=== PATIENT | female | born 1950 | race Caucasian/White ===

== ENCOUNTER 2016-09-17 21:33 | Emergency (ER) | payer BC, OTHER ==
[~2016-09-17] VITALS: Ht 165.1 cm; Wt 56.5 kg
[~2016-09-17 21:33] MED LIST: ASPI81TA28 PO; SIMV40TA2 PO
[2016-09-17 21:38] VITALS: TEMP 37; Ht 165.1 cm; Wt 56.5 kg
[2016-09-17] MEDS ORDERED: DiphenhydrAMINE HCL 50 MG/ML VIAL IV STA (21:56)
[2016-09-17] MEDS ORDERED: METHYLPREDNISOLONE 125 MG VIAL IV STA (21:56)
--- NOTE | 2016-09-17 22:06 | EMERGENCY ROOM VISIT NOTE ---
History Report prepared by Jose Enrique: Bertha Velazquez Under the Supervision of: Dr. Víctor Castano M.D. First contact with patient: 21:48 Chief Complaint: ALLERGIC REACTION Stated Complaint: HIVES History of Present Illness The patient is a 65 year old female who presents to the Emergency Room with complaints of an episode of an allergic reaction beginning yesterday. The patient's friend states that the patient started cough syrup yesterday and she has had hives since then. She reports that the patient has the start of dementia. The patient complains of hives and itchiness. She denies any respiratory problems, nausea, vomiting, and chills. The friend states that the patient had Benadryl 2 hours ago and also had some yesterday without relief of her symptoms. She notes that the patient is a heavy smoker. Source of History: patient, friend Onset: yesterday Position: other (global) Quality: other (itchiness) Timing: other (episode) Associated Symptoms: No chills, No nausea, No vomiting Note: The patient complains of hives and itchiness. She denies any respiratory problems. Review of Systems See HPI for pertinent positives & negatives. A total of 10 systems reviewed and were otherwise negative. Past Medical & Surgical Medical Problems: (1) HYPERLIPIDEMIA NEC/NOS (2) HYPERTENSION NOS (3) Hysterectomy Old medical records were reviewed. Nurse's notes were reviewed and I agree with. She is allergic to sulfa but no other antibiotics that she knows of. She does have allergies to some dyes Family History No pertinent family history stated. Social History Smoking Status: Current Every Day Smoker Marital Status: Housing Status: lives with family Current/Historical Medications Scheduled Amoxicillin & Pot Clavulanate (Augmentin 875-125 mg), 875 MG PO BID Aspirin (Aspirin Ec), 81 MG PO DAILY Cholecalciferol (Vitamin D3), 5,000 INTER.UNIT PO DAILY Donepezil Hydrochloride (Aricept), 10 MG PO HS Estradiol (Estradiol), 0.5 MG PO DAILY Fluoxetine (Prozac), 20 MG PO DAILY Krill Oil (Krill Oil [place]-3), 1 CAP PO DAILY Metoprolol Tartrate (Lopressor) (Lopressor), 25 MG PO BID Multiple Vitamins W/ Minerals (Centrum Silver Adult 50+), 1 TAB PO DAILY Simvastatin (Zocor), 40 MG PO QPM Allergies Coded Allergies: Red Dye (Verified Allergy, Intermediate, Hives, 09/17/16) Sulfa Drugs (Verified Allergy, Unknown, RASH/ITCHING, 03/18/14) Unclassified Drugs (Verified Allergy, Unknown, Black Rubber Mix, 01/14/13) Uncoded Allergies: BLACK DYE (Allergy, Intermediate, Hives, 09/17/16) Physical Exam Vital Signs Date Time Temp Pulse Resp B/P Pulse Ox O2 Delivery O2 Flow Rate FiO2 09/18/16 00:10 61 18 127/64 97 09/17/16 21:46 94 Room Air 09/17/16 21:38 37.0 67 18 157/72 94 Room Air Physical Exam General: Non-ill appearing older female in no acute distress. Speaking and swallowing without difficulty, no drooling. HEENT: Normal cephalic atraumatic. Pupils are equal round and reactive to light. Extraocular movements are intact. Oropharynx is pink with moist mucous membranes. No swelling of the mouth lips or tongue. Neck: Supple with a midline trachea. No meningeal signs or stiffness, no JVD or bruits. No Stridor. Chest: Clear to auscultation bilaterally. No wheezes or rhonchi. No increased work of breathing. Heart: regular rate and rhythm. Abdomen: Soft nontender, nondistended without rebound guarding or rigidity. Extremities: No cyanosis clubbing or edema. No calf tenderness or assymetry Spine/Back. Non tender to palpation. No CVA tenderness Skin: Red raised lesions consistent with hives on arms and torso. Neurologic exam: Cranial nerves two through 12 are intact. Motor and sensation are intact and symmetrical throughout. Medical Decision & Procedures ER Provider Diagnostic Interpretation: X-ray results as stated below per interpretation by me and the radiologist: CHEST ONE VIEW PORTABLE FINDINGS: The patient is hyperinflated. The heart is the upper limits of normal in size. Since the prior study, the patient developed left basal airspace opacities. These are suspicious for a pneumonia. Films subsequent to treatment are recommended in follow-up. There is equivocal trace left pleural effusion.[ IMPRESSION: Interval development of left basal airspace opacities suspicious for pneumonia. Films subsequent to treatment are recommended in follow-up Electronically signed by: Flaco Maradiaga M.D. 09/17/2016 10:09 PM Dictated Date/Time: 09/17/2016 10:08 PM Laboratory Results 09/17/16 22:17 Red Blood Count 4.41, Mean Corpuscular Volume 88.9, Mean Corpuscular Hemoglobin 31.5, Mean Corpuscular Hemoglobin Concent 35.5, Mean Platelet Volume 10.1, Neutrophils (%) (Auto) 75.3, Lymphocytes (%) (Auto) 14.7, Monocytes (%) (Auto) 7.9, Eosinophils (%) (Auto) 0.9, Basophils (%) (Auto) 0.1, Neutrophils # (Auto) 9.20, Lymphocytes # (Auto) 1.79, Monocytes # (Auto) 0.96, Eosinophils # (Auto) 0.11, Basophils # (Auto) 0.01 09/17/16 22:17 Test 09/17/16 22:17 White Blood Count 12.21 K/uL (4.8-10.8) Red Blood Count 4.41 M/uL (4.2-5.4) Hemoglobin 13.9 g/dL (12.0-16.0) Hematocrit 39.2 % (37-47) Mean Corpuscular Volume 88.9 fL (80-100) Mean Corpuscular Hemoglobin 31.5 pg (25-34) Mean Corpuscular Hemoglobin Concent 35.5 g/dl (32-36) Platelet Count 355 K/uL (130-400) Mean Platelet Volume 10.1 fL (7.4-10.4) Neutrophils (%) (Auto) 75.3 % Lymphocytes (%) (Auto) 14.7 % Monocytes (%) (Auto) 7.9 % Eosinophils (%) (Auto) 0.9 % Basophils (%) (Auto) 0.1 % Neutrophils # (Auto) 9.20 K/uL (1.4-6.5) Lymphocytes # (Auto) 1.79 K/uL (1.2-3.4) Monocytes # (Auto) 0.96 K/uL (0.11-0.59) Eosinophils # (Auto) 0.11 K/uL (0-0.5) Basophils # (Auto) 0.01 K/uL (0-0.2) RDW Standard Deviation 42.0 fL (36.4-46.3) RDW Coefficient of Variation 13.0 % (11.5-14.5) Immature Granulocyte % (Auto) 1.1 % Immature Granulocyte # (Auto) 0.14 K/uL (0.00-0.02) Anion Gap 12.0 mmol/L (3-11) Est Creatinine Clear Calc Drug Dose 79.4 ml/min Estimated GFR () 109.1 Estimated GFR (Non- 94.1 BUN/Creatinine Ratio 19.1 (10-20) Calcium Level 8.6 mg/dl (8.5-10.1) Total Bilirubin 0.6 mg/dl (0.2-1) Direct Bilirubin mg/dl (0-0.2) Aspartate Amino Transf (AST/SGOT) U/L (15-37) Alanine Aminotransferase (ALT/SGPT) 28 U/L (12-78) Alkaline Phosphatase 83 U/L (45-117) Total Protein 7.2 gm/dl (6.4-8.2) Albumin 2.9 gm/dl (3.4-5.0) Lipase 105 U/L (73-393) Chemistry Specimen Hemolysis Laboratory studies as stated above per my review. Medications Administered Medications (Trade) Dose Ordered Sig/Marycruz Route Start Time Stop Time Status Last Admin Dose Admin Methylprednisolone Sodium Succinate (Solu-Medrol IV) 125 mg NOW STAT IV 09/17/16 21:56 09/17/16 21:58 DC 09/17/16 22:21 125 MG Diphenhydramine HCl (Benadryl Inj) 25 mg NOW STAT IV 09/17/16 21:56 09/17/16 21:58 DC 09/17/16 22:21 25 MG ED Course 2147: Past medical records reviewed. The patient was evaluated in room B10, and a complete history and physical examination were performed. 6: Benadryl Inj 25mg IV, Solu-Medrol IV 125mg IV. 2259: I reevaluated the patient she is resting comfortably. 2324: I spoke to the patient's son. He does not thing that she has any allergy to penicillin and said that she has had it before without any reaction. 2345: Augmentin 875mg homepack. 2347: Upon reevaluation, the patient is hemodynamically stable. I discussed the results and treatment plan with the patient. She verbalized agreement of the treatment plan. The patient was discharged home. Medical Decision Differential diagnoses include hives, allergic reaction, pneumonia, electrolyte or metabolic imbalance. This patient comes in as described above. She has diffuse hives that have been going on for over 24 hours. She looks well. She has no evidence of airway compromise or swelling and she is speaking and swallowing without difficulty and has no GI symptoms and nothing to suggest anaphylaxis. She apparently did take Benadryl earlier today . IV access was established blood work was obtained. She was given Solu-Medrol 125 Millgrams IV and 25 mg of Benadryl IV, she looks well. The only new thing seems to the cough medicine which I told her to stop it as she could be allergic to it. As she was having a cough, I did do a chest x-ray and the radiologist questions a pneumonia. In light of this, I will put her on Augmentin. She checked with her who thinks she' s had this before and she has no known penicillin allergy according to her or sister. She has no significant electrode or metabolic abdomen. White count is mildly elevated at 12. She's not hypoxemic. She should continue to use Benadryl as needed , follow-up with her regular doctor 1-2 days recheck. return if worsening symptoms, shortness of breath, fever chills, any new problems concerns. She was happy with the plan and discharged home. Impression Primary Impression: Allergic reaction Additional Impression: Pneumonia Scribe Attestation The scribe's documentation has been prepared under my direction and personally reviewed by me in its entirety. I confirm that the note above accurately reflects all work, treatment, procedures, and medical decision making performed by me. Departure Information Dispostion Home / Self-Care Prescriptions Amoxicillin & Pot Clavulanate (Augmentin 875-125 mg) 1 Tab Tab 875 MG PO BID for 10 Days, #20 TAB Prov: Víctor Castano M.D. 09/17/16 Referrals Ezequiel Chinchilla M.D. (PCP) Forms HOME CARE DOCUMENTATION FORM, IMPORTANT VISIT INFORMATION Patient Instructions My [facility] Additional Instructions Rest. Drink plenty of fluids. Use Augmentin 875 mg twice a day for 10 daysantibiotic Use Benadryl 25MG every 8 hours if needed for hives. Benadryl may make you drowsy and be careful getting up and down. Do not take before driving or drinking Return if: Worsening of symptoms, not tolerating fluids, shortness of breath, facial swelling, vomiting, any new problems or concerns. Follow-up with your doctor this week for recheck Problem Qualifiers
--- NOTE | 2016-09-17 22:10 | DIAGNOSTIC IMAGING REPORT ---
CHEST ONE VIEW PORTABLE CLINICAL HISTORY: Atypical chest pain COMPARISON STUDY: 08/06/2013 FINDINGS: The patient is hyperinflated. The heart is the upper limits of normal in size. Since the prior study, the patient developed left basal airspace opacities. These are suspicious for a pneumonia. Films subsequent to treatment are recommended in follow-up. There is equivocal trace left pleural effusion.[ IMPRESSION: Interval development of left basal airspace opacities suspicious for pneumonia. Films subsequent to treatment are recommended in follow-up Electronically signed by: Flaco Maradiaga M.D. 09/17/2016 10:09 PM Dictated Date/Time: 09/17/2016 10:08 PM
[2016-09-17] MEDS ORDERED: CHOLCAP5 PO (22:24)
[2016-09-17] MEDS ORDERED: KRIL1CAP7 PO (22:24)
[2016-09-17] MEDS ORDERED: FLUO20CA35 PO (22:24)
[2016-09-17] MEDS ORDERED: METO25TA56 PO (22:24)
[2016-09-17] MEDS ORDERED: ESTR0.5T3 PO (22:24)
[2016-09-17] MEDS ORDERED: MULT-845 PO (22:24)
[2016-09-17] MEDS ORDERED: DONE10TA12 PO (22:24)
[2016-09-17 22:31] LABS: BASO % 0.1 %; BASO ABS # 0.01 K/uL (0-0.2); COMPLETE YES; EOS % 0.9 %; HEMATOCRIT 39.2 % (37-47); IG% 1.1 %; LYMPH % 14.7 %; LYMPH ABS # 1.79 K/uL (1.2-3.4); MEAN CELL VOLUME 88.9 fL (80-100); MEAN CORPUSCULAR HEMOGLOBIN 31.5 pg (25-34); MEAN CORPUSCULAR HGB CONC 35.5 g/dl (32-36); MEAN PLATELET VOLUME 10.1 fL (7.4-10.4); MONO % 7.9 %; NEUT % 75.3 %; PLATELET COUNT 355 K/uL (130-400); RED BLOOD COUNT 4.41 M/uL (4.2-5.4); WHITE BLOOD COUNT 12.21 K/uL (4.8-10.8)
[2016-09-17 23:22] LABS: ALKALINE PHOSPHATASE 83 U/L (45-117); ALT/SGPT 28 U/L (12-78); BLOOD UREA NITROGEN 12 mg/dl (7-18); BUN/CREATININE RATIO 19.1 (10-20); CALCIUM 8.6 mg/dl (8.5-10.1); CARBON DIOXIDE 28 mmol/L (21-32); CHLORIDE 93 mmol/L (98-107); CREATININE 0.63 mg/dl (0.60-1.20); GLUCOSE 90 mg/dl (70-99); SODIUM 133 mmol/L (136-145)
[2016-09-17] MEDS ORDERED: AMOX875T PO (23:44)
[2016-09-17] MEDS ORDERED: AMOXICIL/CLAVU 875MG HOME PACK PO ONE (23:45)
[2016-09-18 00:10] VITALS: BP 127/64; PULSE 61; O2SAT 97
== END 2016-09-18 00:11 | disposition home or self-care (01) ==
LOC: C.EDB 21:35
DX: T78.40XA Allergy, unspecified, initial encounter (principal); X58.XXXA Exposure to other specified factors, initial encounter; J18.9 Pneumonia, unspecified organism; F03.90 Unspecified dementia, unspecified severity, without behavioral disturbance, psychotic disturbance, mood disturbance, and anxiety; I10 Essential (primary) hypertension; E78.5 Hyperlipidemia, unspecified; F17.200 Nicotine dependence, unspecified, uncomplicated; Z90.710 Acquired absence of both cervix and uterus; Z79.82 Long term (current) use of aspirin; Z79.899 Other long term (current) drug therapy

== ENCOUNTER → 2017-08-08 | Outpatient (CLI) | payer BC ==
[~2017-08-08] MED LIST changes: +CHOLCAP5 PO; +DONE10TA12 PO; +ESTR0.5T3 PO; +FLUO20CA35 PO; +KRIL1CAP7 PO; +METO25TA56 PO; +MULT-845 PO
--- NOTE | 2017-08-08 11:39 | DIAGNOSTIC IMAGING REPORT ---
CHEST 2 VIEWS ROUTINE HISTORY: BRONCHITIS COMPARISON: Chest 09/17/2016. FINDINGS: The lungs are clear. Cardiac silhouette is normal in size. No pleural effusions. No pneumothorax. IMPRESSION: No acute process. Electronically signed by: Kiko Cuba M.D. 08/08/2017 11:38 AM Dictated Date/Time: 08/08/2017 11:37 AM
== END | disposition home or self-care (01) ==
LOC: C.RAD 11:08
PROVIDERS: ATTEND Internal Medicine
DX: J40 Bronchitis, not specified as acute or chronic (principal)

== ENCOUNTER → 2017-08-08 | Outpatient (CLI) | payer BC ==
[2017-08-08 13:23] LABS: BASO % 0.2 %; BASO ABS # 0.01 K/uL (0-0.2); EOS % 0.5 %; EOS ABS # 0.03 K/uL (0-0.5); HEMATOCRIT 39.5 % (37-47); HEMOGLOBIN 13.6 g/dL (12.0-16.0); IG# 0.01 K/uL (0.00-0.02); MEAN CELL VOLUME 91.4 fL (80-100); MEAN CORPUSCULAR HEMOGLOBIN 31.5 pg (25-34); MEAN CORPUSCULAR HGB CONC 34.4 g/dl (32-36); MONO % 5.5 %; MONO ABS # 0.33 K/uL (0.11-0.59); NEUT % 78.6 %; NEUT ABS # 4.71 K/uL (1.4-6.5); PLATELET COUNT 192 K/uL (130-400); RED CELL DISTRIBUTION WIDTH CV 12.9 % (11.5-14.5); RED CELL DISTRIBUTION WIDTH SD 43.2 fL (36.4-46.3); WHITE BLOOD COUNT 5.99 K/uL (4.8-10.8)
[2017-08-08 14:06] LABS: ALBUMIN 3.4 gm/dl (3.4-5.0); ALT/SGPT 36 U/L (12-78); AST/SGOT 30 U/L (15-37); BLOOD UREA NITROGEN 10 mg/dl (7-18); CALCIUM 8.6 mg/dl (8.5-10.1); CARBON DIOXIDE 30 mmol/L (21-32); CREATININE 0.61 mg/dl (0.60-1.20); GLUCOSE 105 mg/dl (70-99); POTASSIUM 3.5 mmol/L (3.5-5.1); SODIUM 126 mmol/L (136-145)
[2017-08-08 14:17] LABS: ALKALINE PHOSPHATASE 77 U/L (45-117)
== END | disposition home or self-care (01) ==
LOC: C.LABSPEC 13:07
PROVIDERS: ATTEND Internal Medicine
DX: J40 Bronchitis, not specified as acute or chronic (principal); R53.83 Other fatigue

== ENCOUNTER 2019-10-18 19:30 | Inpatient (IN) ==
[2019-10-18] MEDS ORDERED: SODIUM CHLORIDE 0.9% 250 ML IV PRN ×2 (19:44→22:27)
[2019-10-18] MEDS ORDERED: PANTOprazole 80 MG in DEXTROSE 5% 100 ML IV ONE (19:45)
--- NOTE | 2019-10-18 19:47 | Emergency Department Note ---
History of Present Illness General Chief complaint: Abnormal Labs/Diagnostic Testing Stated complaint: ABNORMAL LABS Time Seen by Provider: 10/18/19 19:35 History of Present Illness Maximum Pain Intensity: 0 Home Medications Home Medications Medication Instructions Recorded Confirmed Type aspirin 81 mg tablet,delayed 81 mg PO DAILY 05/10/19 05/14/19 History release cholecalciferol (vitamin D3) 125 5,000 units PO DAILY 05/10/19 05/14/19 History mcg (5,000 unit) capsule fluoxetine 20 mg capsule 20 mg PO DAILY 05/10/19 05/14/19 History krill oil 1 ea PO DAILY 05/10/19 05/14/19 History metoprolol tartrate 25 mg tablet 25 mg PO BID 05/10/19 05/14/19 History multivitamin 1 tab PO DAILY 05/10/19 05/14/19 History olanzapine 2.5 mg tablet 2.5 mg PO QPM 05/13/19 05/14/19 History donepezil 10 mg tablet 10 mg PO DAILY #30 tab 05/14/19 05/14/19 Rx pimavanserin 34 mg capsule 34 mg PO DAILY #30 cap 05/14/19 05/14/19 Rx memantine 5 mg tablet 10 mg PO BID 30 Days #120 tab 08/26/19 Rx Allergies Allergy/AdvReac Type Severity Reaction Status Date / Time red dye Allergy Intermediate Hives Verified 05/14/19 14:48 Sulfa (Sulfonamide Allergy Unknown RASH/ITCHIN Verified 05/14/19 14:48 Antibiotics) G BLACK DYE Allergy Intermediate Hives Uncoded 05/14/19 14:48 Unclassified Drugs Allergy Unknown Black Uncoded 05/14/19 14:48 Rubber Mix Past Med/Surg History Social History Current Living Situation: Spouse current occupational status: retired Feels Safe at Home: Yes Smoking Status: Former smoker Hx Alcohol Use: No Hx Substance Use: No Physical Exam Vital Signs Vital Signs - 24 hr 10/18/19 19:32 Temperature 36.8 C Temperature Source Oral Pulse Rate 92 H Respiratory Rate 16 Respiratory Effort / Characteristics Non-Labored Spontaneous Respiratory Depth Normal Blood Pressure 170/68 H Blood Pressure Mean 102 Pulse Oximetry 99 Oxygen Delivery Method Room Air Sepsis Recent Fever Within 48 Hours No Sepsis New/Unexplained Change in Mental Status No Sepsis Action Taken by Nursing No Action Required Discharge Plan Visit Data Chief Complaint: Abnormal Labs/Diagnostic Testing Stated Complaint: ABNORMAL LABS ED Provider: Víctor Castano Prescriptions Prescriptions: No Action memantine 5 mg tablet 10 mg PO BID 30 Days Qty: 120 RF: 3 aspirin [Adult Low Dose Aspirin] 81 mg tablet,delayed release (DR/EC) 81 mg PO DAILY RF: 0 cholecalciferol (vitamin D3) 5,000 unit capsule 5,000 units PO DAILY RF: 0 fluoxetine 20 mg capsule 20 mg PO DAILY RF: 0 krill oil 1 ea PO DAILY RF: 0 metoprolol tartrate 25 mg tablet 25 mg PO BID RF: 0 multivitamin [Multiple Vitamins] tablet 1 tab PO DAILY RF: 0 olanzapine [Zyprexa] 2.5 mg tablet 2.5 mg PO QPM RF: 0 pimavanserin 34 mg capsule 34 mg PO DAILY Qty: 30 RF: 2 donepezil 10 mg tablet 10 mg PO DAILY Qty: 30 RF: 6
--- NOTE | 2019-10-18 19:52 | Emergency Department Note ---
History of Present Illness General Chief complaint: Abnormal Labs/Diagnostic Testing Stated complaint: ABNORMAL LABS Time Seen by Provider: 10/18/19 19:35 Source: patient and other (caregiver) Mode of arrival: wheelchair Limitations: other (baseline significant dementia) History of Present Illness Maximum Pain Intensity: 0 This patient was sent over by Dr. Steve's office after she had a hemoglobin of 4. She was treated for UTI couple weeks ago and her caregiver says she has been weak over the last week or so particularly when she tries to get up she seems very unsteady and has dyspnea on exertion. She was noted to be pale and labs were done and her hemoglobin is 4.1 her stools have been dark as well. She has had no cough or travel or exposure to anybody with coronavirus. She has been falling and she scraped her knee but no other injuries cord and the caregiver. She is not a vegetarian. She actually has had constipation lately and did have some suspositories relatively recently. She is not on blood thinners and has not been using NSAIDs Home Medications Home Medications Medication Instructions Recorded Confirmed Type aspirin 81 mg tablet,delayed 81 mg PO DAILY 05/10/19 10/18/19 History release cholecalciferol (vitamin D3) 125 5,000 units PO DAILY 05/10/19 10/18/19 History mcg (5,000 unit) capsule fluoxetine 20 mg capsule 20 mg PO DAILY 05/10/19 10/18/19 History metoprolol tartrate 25 mg tablet 25 mg PO BID 05/10/19 10/18/19 History multivitamin 1 tab PO DAILY 05/10/19 10/18/19 History donepezil 10 mg tablet 10 mg PO DAILY #30 tab 05/14/19 10/18/19 Rx memantine 5 mg tablet 10 mg PO BID 30 Days #120 tab 08/26/19 10/18/19 Rx [id number]-[id number] 1 cap PO DAILY 10/18/19 10/18/19 History [krill oil] risperidone 0.5 mg PO HS 10/18/19 10/18/19 History Allergies Allergy/AdvReac Type Severity Reaction Status Date / Time red dye Allergy Intermediate Hives Verified 10/18/19 20:17 Sulfa (Sulfonamide Allergy Unknown RASH/ITCHIN Verified 10/18/19 20:17 Antibiotics) G BLACK DYE Allergy Intermediate Hives Uncoded 10/18/19 20:17 Unclassified Drugs Allergy Unknown Black Uncoded 10/18/19 20:17 Rubber Mix Past Med/Surg History Medical History Dementia Hyperlipidemia Hypertension Surgical History History of hysterectomy Family History Father Cancer Mother Heart disease Family/Other Hx of CABG Cancer Diabetes Social History Current Living Situation: Spouse current occupational status: retired Feels Safe at Home: Yes Smoking Status: Former smoker Hx Alcohol Use: No Hx Substance Use: No Review of Systems Unobtainable due to cognitive status Physical Exam Vital Signs Vital Signs - 24 hr 10/18/19 19:32 10/18/19 19:42 10/18/19 19:44 Temperature 36.8 C Temperature Source Oral Pulse Rate 92 H 58 L Pulse Rate from SpO2 Sensor Respiratory Rate 16 17 Respiratory Effort / Characteristics Non-Labored Spontaneous Respiratory Depth Normal Blood Pressure 170/68 H 149/106 H Blood Pressure Mean 102 122 Pulse Oximetry 99 Oxygen Delivery Method Room Air Room Air Oxygen Flow Rate Sepsis Recent Fever Within 48 Hours No Sepsis New/Unexplained Change in Mental Status No Sepsis Action Taken by Nursing No Action Required 10/18/19 20:09 10/18/19 20:39 10/18/19 21:00 Temperature Temperature Source Pulse Rate 58 L 55 L 51 L Pulse Rate from SpO2 Sensor 55 L 51 L Respiratory Rate 15 17 17 Respiratory Effort / Characteristics Respiratory Depth Blood Pressure 138/71 141/74 H 133/68 Blood Pressure Mean 104 100 96 Pulse Oximetry 96 98 Oxygen Delivery Method Room Air Room Air Oxygen Flow Rate Sepsis Recent Fever Within 48 Hours Sepsis New/Unexplained Change in Mental Status Sepsis Action Taken by Nursing 10/18/19 21:14 10/18/19 21:32 10/18/19 21:33 Temperature 36.8 C 36.8 C Temperature Source Oral Oral Pulse Rate 49 L 51 L 51 L Pulse Rate from SpO2 Sensor Respiratory Rate 12 14 14 Respiratory Effort / Characteristics Respiratory Depth Blood Pressure 114/57 L 133/77 Blood Pressure Mean 76 95 Pulse Oximetry 97 96 96 Oxygen Delivery Method Oxygen Flow Rate 0 0 0 Sepsis Recent Fever Within 48 Hours Sepsis New/Unexplained Change in Mental Status Sepsis Action Taken by Nursing 10/18/19 21:48 Temperature 36.5 C Temperature Source Oral Pulse Rate 52 L Pulse Rate from SpO2 Sensor Respiratory Rate 15 Respiratory Effort / Characteristics Respiratory Depth Blood Pressure 149/78 H Blood Pressure Mean 101 Pulse Oximetry 97 Oxygen Delivery Method Oxygen Flow Rate 0 Sepsis Recent Fever Within 48 Hours Sepsis New/Unexplained Change in Mental Status Sepsis Action Taken by Nursing General: Well developed well nourished pale older female who appears in no acute distress, breathing comfortably on room air. Normal speech. She is awake and does answer some brief questions. HEENT: Normal cephalic atraumatic. Pupils are equal round and reactive to light. Sclera are pale extraocular movements are intact. Oropharynx is pink with moist mucous membranes. No swelling of the mouth lips or tongue. Neck: Supple with a midline trachea. No meningeal signs or stiffness, no JVD or bruits. No Stridor. Chest: Clear to auscultation bilaterally. No wheezes or rhonchi. No increased work of breathing. Heart: Regular rate and rhythm without murmurs or gallops. Abdomen: Soft nontender, nondistended without rebound guarding or rigidity. Extremities: No cyanosis clubbing or edema. No calf tenderness or assymetry Spine/Back. Non tender to palpation. No CVA tenderness Skin: Good turgor without rashes. Neurologic exam: Cranial nerves two through 12 are intact. Motor and sensation are intact and symmetrical throughout. Course Administered Medications Pantoprazole Sodium 40 mg/ (Dextrose) 100 mls @ 20 mls/hr IV Q5H [facility] Stop: 11/17/19 19:44 Last Admin: 10/18/19 20:55 Dose: 8 mg/hr, 20 mls/hr Documented by: [id number] Discontinued Medications Pantoprazole Sodium 80 mg/ (Dextrose) 120 mls @ 480 mls/hr IV NOW ONE Stop: 10/18/19 19:59 Last Infusion: 10/18/19 20:54 Dose: 0 mls/hr Documented by: [id number] Admin: 10/18/19 20:38 Dose: 480 mls/hr Documented by: [id number] Impression & Plan GI (gastrointestinal bleed), Anemia, Dementia, Melena, BYRD (dyspnea on exertion), Weakness Critical Care Time Critical Care Time: Yes Total Critical Care Time: 32 Due to the patient's significant anemia/GI bleed and need for an acute blood transfusion as well as IV Protonix and frequent reassessment, I have personally spent greater than 32 minutes of critical care time in the direct management of this patient. This includes bedside care, interpretation of diagnostic studies, and testing, discussion with consultants, patient, and family members, and other required patient management activities. This 32 minutes is in excess of all separately billable procedures. Discharge Plan Visit Data Chief Complaint: Abnormal Labs/Diagnostic Testing Stated Complaint: ABNORMAL LABS ED Provider: Víctor Castano Discharge Problem: GI (gastrointestinal bleed), Anemia, Dementia, Melena, BYRD (dyspnea on exertion), Weakness Patient Disposition: Still a Patient Forms Stand Alone Forms: My [facility] Prescriptions Prescriptions: No Action memantine 5 mg tablet 10 mg PO BID 30 Days Qty: 120 RF: 3 aspirin [Adult Low Dose Aspirin] 81 mg tablet,delayed release (DR/EC) 81 mg PO DAILY RF: 0 cholecalciferol (vitamin D3) 5,000 unit capsule 5,000 units PO DAILY RF: 0 fluoxetine 20 mg capsule 20 mg PO DAILY RF: 0 metoprolol tartrate 25 mg tablet 25 mg PO BID RF: 0 multivitamin [Multiple Vitamins] tablet 1 tab PO DAILY RF: 0 donepezil 10 mg tablet 10 mg PO DAILY Qty: 30 RF: 6 risperidone 0.5 mg tablet 0.5 mg PO HS RF: 0 [id number]-[id number]-ast [krill oil] [id number],[id number] mg Capsule 1 cap PO DAILY RF: 0 Referrals Referrals: Ezequiel Steve MD [Primary Care Provider] - Medical Decision Making Differential Diagnosis Differential diagnosis includes but is not limited to: GI bleed, peptic ulcer disease, anemia, cardiac disease, lower GI bleed. Medical Records Attestation: I reviewed the patient's medical records. Home Medications Current Medication List: was personally reviewed by me Laboratory Data Attestation: I reviewed the patient's lab results. Result diagrams: 10/18/19 19:50 10/18/19 19:50 Lab Results 10/18/19 10/18/19 10/18/19 Range/Units 19:50 19:50 19:50 WBC 5.02 (4.8-10.8) K/uL RBC 2.30 L (4.2-5.4) M/uL Hgb 3.9 L* (12.0-16.0) g/dL Hct 14.6 L* (37-47) % MCV 63.5 L (80-100) fL MCH 17.0 L (25-34) pg MCHC 26.7 L (32-36) g/dL Plt Count 417 H (130-400) K/uL Immature Gran % (Auto) 0.4 % Neut % (Auto) 45.0 % Lymph % (Auto) 39.8 % [place] % (Auto) 8.6 % Eos % (Auto) 5.8 % Baso % (Auto) 0.4 % Immature Gran # (Auto) 0.02 (0.00-0.02) K/uL Neut # (Auto) 2.26 (1.4-6.5) K/uL Lymph # (Auto) 2.00 (1.2-3.4) K/uL [place] # (Auto) 0.43 (0.11-0.59) K/uL Eos # (Auto) 0.29 (0-0.5) K/uL Baso # (Auto) 0.02 (0-0.2) K/uL Absolute Nucleated RBC 0.25 H (0-0) K/uL Nucleated RBC % (auto) 4.9 % Hypochromasia Present Microcytosis Present Ovalocytes 1+ Schistocytes 1+ Sodium 140 (136-145) mmol/L Potassium 3.8 (3.5-5.1) mmol/L Chloride 110 H (98-107) mmol/L Carbon Dioxide 27 (21-32) mmol/L Anion Gap 3.0 (3-11) BUN 16 (7-18) mg/dl Creatinine 0.77 (0.6-1.2) mg/dl Est Cr Clr Drug Dosing Not Reportable Est GFR ( Amer) 91.3 Est GFR (Non-Af Amer) 78.8 BUN/Creatinine Ratio 21.0 H (10-20) Glucose 89 (70-99) mg/dl Calcium 8.5 (8.5-10.1) mg/dl Total Bilirubin 0.6 (0.2-1) mg/dl AST 36 (15-37) U/L ALT 76 (12-78) U/L Alkaline Phosphatase 99 (45-117) U/L Total Protein 6.2 L (6.4-8.2) gm/dl Albumin 3.0 L (3.4-5.0) gm/dl Globulin 3.2 (2.5-4.0) gm/dl Albumin/Globulin Ratio 0.9 (0.9-2) Lipase 97 (73-393) U/L Blood Type A Positive Blood Type Recheck Antibody Screen NEGATIVE Crossmatch See Detail 10/18/19 Range/Units 20:34 WBC (4.8-10.8) K/uL RBC (4.2-5.4) M/uL Hgb (12.0-16.0) g/dL Hct (37-47) % MCV (80-100) fL MCH (25-34) pg MCHC (32-36) g/dL Plt Count (130-400) K/uL Immature Gran % (Auto) % Neut % (Auto) % Lymph % (Auto) % [place] % (Auto) % Eos % (Auto) % Baso % (Auto) % Immature Gran # (Auto) (0.00-0.02) K/uL Neut # (Auto) (1.4-6.5) K/uL Lymph # (Auto) (1.2-3.4) K/uL [place] # (Auto) (0.11-0.59) K/uL Eos # (Auto) (0-0.5) K/uL Baso # (Auto) (0-0.2) K/uL Absolute Nucleated RBC (0-0) K/uL Nucleated RBC % (auto) % Hypochromasia Microcytosis Ovalocytes Schistocytes Sodium (136-145) mmol/L Potassium (3.5-5.1) mmol/L Chloride (98-107) mmol/L Carbon Dioxide (21-32) mmol/L Anion Gap (3-11) BUN (7-18) mg/dl Creatinine (0.6-1.2) mg/dl Est Cr Clr Drug Dosing Est GFR ( Amer) Est GFR (Non-Af Amer) BUN/Creatinine Ratio (10-20) Glucose (70-99) mg/dl Calcium (8.5-10.1) mg/dl Total Bilirubin (0.2-1) mg/dl AST (15-37) U/L ALT (12-78) U/L Alkaline Phosphatase (45-117) U/L Total Protein (6.4-8.2) gm/dl Albumin (3.4-5.0) gm/dl Globulin (2.5-4.0) gm/dl Albumin/Globulin Ratio (0.9-2) Lipase (73-393) U/L Blood Type Blood Type Recheck A Positive Antibody Screen Crossmatch Imaging Data Radiologist's Impression: Chest x-ray: Haziness, possible infiltrates in the bases bilaterally ECG Data Attestation: I personally reviewed and interpreted this ECG as follows: Indication: + weakness Rate (beats per minute): 56 Rhythm: + sinus bradycardia ECG [place]: + Normal ECG ST segments: + Nonspecific ST abnormalities Comparison ECG Date: no prior available Blood Pressure Blood Pressure Findings: Elevated blood pressure MDM Narrative This patient comes in as scribed above she has been weak and pale lately she is has dark stools. She saw her primary doctor today who ordered labs her hemogl obin was significantly low at 4.1. IV access established and blood work was obtained she was typed and crossed for blood in the ED with the first unit to be started. She was also given Protonix IV bolus and drip. The patient will need to be admitted. Her repeat hemoglobin was 3.9. She has no significant electrolyte or metabolic abnormalities. Her EKG was unremarkable and does not show any ischemic changes in fact she is on the bradycardic side. Chest x-ray shows some possible infiltrates in the bases bilaterally but I do not think is likely infectious. Her sister did arrive and I discussed the need for blood transfusion with the sister as well as the risk and benefits. She agreed. I also talked to the on the telephone, he was afraid to come to the ER as he says he is immunocompromised and was worried about get exposed to Covid. I explained the risk and the benefits of blood transfusions on the phone and he also verbally agreed and this was witnessed by our nurse as well as Dr. Weathers. Did order the blood transfusion to be started. The patient will be admitted for further treatment and and transfusion Discharge Problem: GI (gastrointestinal bleed) Qualifiers: GI bleed type/associated pathology: melena Qualified Code(s): K92.1 - Melena Anemia Qualifiers: Anemia type: iron deficiency Iron deficiency anemia type: unspecified iron deficiency Qualified Code(s): D50.9 - Iron deficiency anemia, unspecified Dementia Qualifiers: Dementia type: unspecified type Dementia behavioral disturbance: without behavioral disturbance Qualified Code(s): F03.90 - Unspecified dementia without behavioral disturbance
[2019-10-18 20:05] LABS: Hematocrit (blood only) 14.6 % (37-47); Hemoglobin 3.9 g/dL (12.0-16.0); Mean Corpuscular Hgb Conc 26.7 g/dL (32-36); Mean Corpuscular Volume 63.5 fL (80-100); Nucleated RBC # (auto) 0.25 K/uL (0-0); Nucleated RBC % (auto) 4.9 %; Platelet Count 417 K/uL (130-400); White Blood Count 5.02 K/uL (4.8-10.8)
[2019-10-18 20:18] LABS: Alanine Aminotransferase 76 U/L (12-78); Aspartate Aminotransferase 36 U/L (15-37); Blood Urea Nitrogen 16 mg/dl (7-18); Calcium 8.5 mg/dl (8.5-10.1); Carbon Dioxide 27 mmol/L (21-32); Chloride 110 mmol/L (98-107); Est GFR (African American) 91.3; Est GFR (Non-African American) 78.8; Glucose 89 mg/dl (70-99); Lipase 97 U/L (73-393); Potassium 3.8 mmol/L (3.5-5.1); Sodium 140 mmol/L (136-145)
[2019-10-18 20:21] LABS: Albumin Globulin Ratio 0.9 (0.9-2); Alkaline Phosphatase 99 U/L (45-117); Bilirubin,Total 0.6 mg/dl (0.2-1); Globulin 3.2 gm/dl (2.5-4.0); Total Protein 6.2 gm/dl (6.4-8.2)
[2019-10-18 20:27] LABS: Basophils # (auto) 0.02 K/uL (0-0.2); Basophils % (auto) 0.4 %; Eosinophils # (auto) 0.29 K/uL (0-0.5); Eosinophils % (auto) 5.8 %; Hypochromasia Present; Immature Granulocytes # (auto) 0.02 K/uL (0.00-0.02); Immature Granulocytes % (auto) 0.4 %; Lymphocytes % (auto) 39.8 %; Microcytosis Present; Monocytes # (auto) 0.43 K/uL (0.11-0.59); Monocytes % (auto) 8.6 %; Neutrophils # (auto) 2.26 K/uL (1.4-6.5); Ovalocytes 1+; Schistocytes 1+
[2019-10-18] MEDS: PANTOprazole 40 MG in DEXTROSE 5% 100 ML IV SCH (20:55)
--- NOTE | 2019-10-18 21:44 | XRay Report ---
XR chest 1V portable CLINICAL HISTORY: weakness dyspnea COMPARISON STUDY: 09/17/2016 FINDINGS: Bibasilar parenchymal infiltrates combined with moderate cardiomegaly. Pulmonary vascular c ongestion versus mild congestive failure may present a similar fashion. Increased hilar prominence bilaterally secondary to what is most likely pulmonary arterial hypertensi on. IMPRESSION: 1. Bibasilar parenchymal infiltrates. 2. Moderate cardiomegaly. 3. Pulmonary arterial hypertension. ACT 112: Negative or not required by law. The above report was generated using voice recognition software. It may contain grammatical, syntax or spelling errors. Electronically signed by: Jeremi Gallo M.D. 10/18/2019 9:43 PM
--- NOTE | 2019-10-18 21:52 | History & Physical Report ---
Date of Service October 18, 2019 Assessment & Plan (1) GI (gastrointestinal bleed): 69-year-old female with advanced dementia found to have H&H 3.9/14.6. History of taking 2 Aleve's per night for a very long time. Also on donepezil. GI bleed, severe anemia -Transfusions begun in the ER -Check H&H every 6 hours -Consult gastroenterology -Remain n.p.o. -Protonix drip ongoing FEN/GI: N.p.o. in setting of GI bleed as above. Protonix drip. DVT ppx: SCDs. Chemical anticoagulation contraindicated at this time. CODE STATUS: DNR/DNI as discussed with patient's and POA, as well as patient's sister. DISPO: Telemetry Other ongoing medical problems: Advanced dementia, complicated by sleep difficulties and hallucinations: Reviewed last neurology note in April 2019. Hemphill testing at that time revealed a score of 0 out of 30. Unable to follow commands with any consistency and had minimal speech output. In fact, over the phone stated hospice was to be evaluating her tomorrow. -Holding all meds in setting of severe GI bleed including donepezil and memantine. -Avoid Ambien, Ativan, Benadryl. Holding aspirin. Holding vitamins. Depression: Holding fluoxetine. Hypertension: Holding metoprolol tartrate Restless legs: Holding risperidone. (2) Anemia: (3) Dementia: (4) Melena: History of Present Illness Chief Complaint: Melanotic stools at home, severe anemia on outpatient labs, sent to ER Primary Care Provider: Ezequiel Steve MD This is a 69-year-old female with past medical history of hypertension, hyperlipidemia, depression and advanced dementia since 2009--who was instructed to go to the ER after her primary care doctor reviewed her labs. She presented earlier today with her . Per report, there were complaints of dark stools. Labs were ordered by PCP and were significant for hemoglobin of 4.1, hematocrit 15.8, MCV 64.2. No leukocytosis. Chemistry panel revealed no significant abnormalities and BUN 16, creatinine 0.77, GFR 91. TSH within normal limits. In discussion with her Robert over the phone: He admitted he could not provide much additional history but confirms he is her POA and that she would not want drastic measures taken should her heart stop or breathing stop. In discussion with her daily caregiver Mehreen Mohr over the phone, she states the patient is administered 2 Aleve every night for a very long time. This is for her aches and pains. Caregiver noticed dark stools 2 days ago, but says patient did not have a bowel movement today. States patient complains of abdominal pain when she gets constipated, and so she administered Dulcolax. P.o. intake has been good. In discussion with her sister at the bedside, she confirmed the above. Allergies Allergy/AdvReac Type Severity Reaction Status Date / Time red dye Allergy Intermediate Hives Verified 10/18/19 20:17 Sulfa (Sulfonamide Allergy Unknown RASH/ITCHIN Verified 10/18/19 20:17 Antibiotics) G BLACK DYE Allergy Intermediate Hives Uncoded 10/18/19 20:17 Unclassified Drugs Allergy Unknown Black Uncoded 10/18/19 20:17 Rubber Mix Home Medications Home Medications Medication Instructions Recorded Confirmed Type cholecalciferol (vitamin D3) 125 5,000 units PO DAILY 05/10/19 10/18/19 History mcg (5,000 unit) capsule fluoxetine 20 mg capsule 20 mg PO DAILY 05/10/19 10/18/19 History metoprolol tartrate 25 mg tablet 25 mg PO BID 05/10/19 10/18/19 History multivitamin 1 tab PO DAILY 05/10/19 10/18/19 History donepezil 10 mg tablet 10 mg PO DAILY #30 tab 05/14/19 10/18/19 Rx memantine 5 mg tablet 10 mg PO BID 30 Days #120 tab 08/26/19 10/18/19 Rx kpotn-jf-7-uvn-fye-gxeurcw-ast 1 cap PO DAILY 10/18/19 10/18/19 History [krill oil] risperidone 0.5 mg PO HS 10/18/19 10/18/19 History pantoprazole [Protonix] 40 mg PO BID 30 Days #60 tab 10/21/19 Rx Past Med/Surg History Medical History Dementia Hyperlipidemia Hypertension Surgical History History of hysterectomy Family History Father Cancer Mother Heart disease Family/Other Hx of CABG Cancer Diabetes Social History Preferred Language: Citizen Of [place] Communication Ability: Impaired [place] Required: No Beliefs That Will Affect Care: None marital status: Current Living Situation: Spouse current occupational status: retired Other Information That Helps Us Care for You: No Feels Safe at Home: Yes Safety Concerns: Feels Safe At This Time Smoking Status: Former smoker Tobacco Type: cigarettes ; Do You Dip or Chew Tobacco: No ; Second Hand Exposure: No ; Tobacco Cessation Education Requested by Patient: No Hx Alcohol Use: No Hx Substance Use: No Review of Systems Review of Systems: Unobtainable due to mental health condition Physical Exam Physical Exam: Vitals noted and within normal limits GENERAL: Somnolent but arousable. nontoxic-appearing, in no distress. HENT: Normocephalic, atraumatic. Mucus membranes appear moist. EYES: Normal conjunctiva. Sclera non-icteric. EOMI. NECK: Supple. Full range of motion. No JVD. RESPIRATORY: Clear to auscultation. Normal work of breathing. CARDIAC: Regular rate, normal rhythm. Extremities warm and well perfused, no petechia noted. ABDOMEN: Soft, non-distended. No visible tenderness to deep palpation in all four quadrants, however patient remains nonverbal during my interview. Bowel sounds are normal. LOWER EXTREMITIES: Inspection of calves reveal equal size bilaterally. No edema. No discoloration. NEURO: She is somnolent, laying upright in her bed. SKIN: Rash not present. No jaundice noted. Significant lesions not present. Patient's sister present. Exam as done by Isabel Jaramillo MD, [place]. Results & Data Results & Data ([facility]) Vital Signs (Past 12 Hours) Vital Signs Temp Pulse Resp BP Pulse Ox 10/18/19 21:32 36.8 C 51 L 14 133/77 96 10/18/19 21:14 36.8 C 49 L 12 114/57 L 97 10/18/19 21:00 51 L 17 133/68 98 10/18/19 20:39 55 L 17 141/74 H 96 10/18/19 20:09 58 L 15 138/71 10/18/19 19:42 58 L 17 149/106 H 10/18/19 19:32 36.8 C 92 H 16 170/68 H 99 Laboratory Results 10/18/19 10/18/19 10/18/19 Range/Units 20:34 19:50 19:50 WBC 5.02 (4.8-10.8) K/uL RBC 2.30 L (4.2-5.4) M/uL Hgb 3.9 L* (12.0-16.0) g/dL Hct 14.6 L* (37-47) % MCV 63.5 L (80-100) fL MCH 17.0 L (25-34) pg MCHC 26.7 L (32-36) g/dL Plt Count 417 H (130-400) K/uL Immature Gran % (Auto) 0.4 % Neut % (Auto) 45.0 % Lymph % (Auto) 39.8 % [place] % (Auto) 8.6 % Eos % (Auto) 5.8 % Baso % (Auto) 0.4 % Immature Gran # (Auto) 0.02 (0.00-0.02) K/uL Neut # (Auto) 2.26 (1.4-6.5) K/uL Lymph # (Auto) 2.00 (1.2-3.4) K/uL [place] # (Auto) 0.43 (0.11-0.59) K/uL Eos # (Auto) 0.29 (0-0.5) K/uL Baso # (Auto) 0.02 (0-0.2) K/uL Absolute Nucleated RBC 0.25 H (0-0) K/uL Nucleated RBC % (auto) 4.9 % Hypochromasia Present Microcytosis Present Ovalocytes 1+ Schistocytes 1+ Sodium 140 (136-145) mmol/L Potassium 3.8 (3.5-5.1) mmol/L Chloride 110 H (98-107) mmol/L Carbon Dioxide 27 (21-32) mmol/L Anion Gap 3.0 (3-11) BUN 16 (7-18) mg/dl Creatinine 0.77 (0.6-1.2) mg/dl Est Cr Clr Drug Dosing Not Reportable Est GFR ( Amer) 91.3 Est GFR (Non-Af Amer) 78.8 BUN/Creatinine Ratio 21.0 H (10-20) Glucose 89 (70-99) mg/dl Calcium 8.5 (8.5-10.1) mg/dl Total Bilirubin 0.6 (0.2-1) mg/dl AST 36 (15-37) U/L ALT 76 (12-78) U/L Alkaline Phosphatase 99 (45-117) U/L Total Protein 6.2 L (6.4-8.2) gm/dl Albumin 3.0 L (3.4-5.0) gm/dl Globulin 3.2 (2.5-4.0) gm/dl Albumin/Globulin Ratio 0.9 (0.9-2) Lipase 97 (73-393) U/L Blood Type Blood Type Recheck A Positive Antibody Screen Crossmatch 10/18/19 Range/Units 19:50 WBC (4.8-10.8) K/uL RBC (4.2-5.4) M/uL Hgb (12.0-16.0) g/dL Hct (37-47) % MCV (80-100) fL MCH (25-34) pg MCHC (32-36) g/dL Plt Count (130-400) K/uL Immature Gran % (Auto) % Neut % (Auto) % Lymph % (Auto) % [place] % (Auto) % Eos % (Auto) % Baso % (Auto) % Immature Gran # (Auto) (0.00-0.02) K/uL Neut # (Auto) (1.4-6.5) K/uL Lymph # (Auto) (1.2-3.4) K/uL [place] # (Auto) (0.11-0.59) K/uL Eos # (Auto) (0-0.5) K/uL Baso # (Auto) (0-0.2) K/uL Absolute Nucleated RBC (0-0) K/uL Nucleated RBC % (auto) % Hypochromasia Microcytosis Ovalocytes Schistocytes Sodium (136-145) mmol/L Potassium (3.5-5.1) mmol/L Chloride (98-107) mmol/L Carbon Dioxide (21-32) mmol/L Anion Gap (3-11) BUN (7-18) mg/dl Creatinine (0.6-1.2) mg/dl Est Cr Clr Drug Dosing Est GFR ( Amer) Est GFR (Non-Af Amer) BUN/Creatinine Ratio (10-20) Glucose (70-99) mg/dl Calcium (8.5-10.1) mg/dl Total Bilirubin (0.2-1) mg/dl AST (15-37) U/L ALT (12-78) U/L Alkaline Phosphatase (45-117) U/L Total Protein (6.4-8.2) gm/dl Albumin (3.4-5.0) gm/dl Globulin (2.5-4.0) gm/dl Albumin/Globulin Ratio (0.9-2) Lipase (73-393) U/L Blood Type A Positive Blood Type Recheck Antibody Screen NEGATIVE Crossmatch See Detail Code Status & VTE Plan Code Status DNR/DNI Supervising Physician Co-Signing Physician Notes Attending addendum: I have physically seen this patient, have supervised the medical residents activities, and agree with the H&P unless as otherwise noted. Assessment and Plan: GI bleed/symptomatic anemia- Patient has been taking 2 naproxen/Aleve at nighttime for a long time. Likely upper GI bleed. N.p.o. H&H every 6 hours. Protonix infusion Zofran 4 mg IV every 6 hours as needed. Consult gastroenterology for EGD. Remainder of orders and notations as noted. Resident Activity Tracking Resident Involvement: Resident Care Provided Care Provided: Adult Hospital Medicine (1) GI (gastrointestinal bleed) GI bleed type/associated pathology: melena Qualified Code(s): K92.1 - Melena (2) Anemia Anemia type: iron deficiency Iron deficiency anemia type: unspecified iron deficiency Qualified Code(s): D50.9 - Iron deficiency anemia, unspecified (3) Dementia Dementia behavioral disturbance: without behavioral disturbance Dementia type: unspecified type Qualified Code(s): F03.90 - Unspecified dementia without behavioral disturbance
[2019-10-18] MEDS ORDERED: ONDANSETRON INJ 2 MG/ML 2 ML VIAL IV PRN (22:27)
[2019-10-19] MEDS: PANTOprazole 40 MG in DEXTROSE 5% 100 ML IV SCH ×4 (00:23→16:39)
[2019-10-19 04:23] LABS: Hematocrit (blood only) 23.7 % (37-47); Hemoglobin 7.2 g/dL (12.0-16.0)
[2019-10-19] MEDS ORDERED: SODIUM CHLORIDE 0.9% 250 ML IV PRN (05:33)
[2019-10-19 10:27] LABS: Hematocrit (blood only) 28.9 % (37-47); Hemoglobin 9.1 g/dL (12.0-16.0)
--- NOTE | 2019-10-19 12:55 | Electrocardiogram Report ---
Test Reason : Blood Pressure : / mmHG Vent. Rate : 056 BPM Atrial Rate : 056 BPM P-R Int : 148 ms QRS Dur : 078 ms QT Int : 460 ms P-R-T Axes : 053 025 042 degrees QTc Int : 443 ms Poor data quality, interpretation may be adversely affected Sinus bradycardia Nonspecific ST and T wave abnormality Abnormal ECG No previous ECGs available Confirmed by Justen Navarro ([id number]) on 10/19/2019 12:54:53 PM Referred By: Ezequiel Steve Confirmed By:Justen Navarro
[2019-10-19] MEDS ORDERED: HydrALAZINE HCL 20 MG/ML VIAL IV PRN (14:48)
--- NOTE | 2019-10-19 15:58 | Family Medicine Progress Note ---
Date of Service October 19, 2019 Assessment & Plan (1) GI (gastrointestinal bleed): 69 yo F PMHx HTN, dementia on donepezil and anemia receiving continued acute care for anemia to 3.9 likely 2/2 UGI bleed. GI bleed, severe anemia: - Transfusion PRBCs x3 this admission with increase in Hgb from 3.9 -> 9.1. - Will recheck in AM. - GI recs not to do scope at this time given pursuit of hospice by family, overall comorbidities. - Protonix 40mg IV q12h, will transition to PO once tolerates. - Continue NPO for now; pt eats with assistance at home per family. Have placed speech evaluation order. - Spoke with patient's on the phone today at length. He said that "he promise Ramnoa that he would not put her in a home unless he absolutely needed to, and that he wants to respect her wishes and consider hospice since she has been going downhill for 8 years". He spoke with Shell with Case Management about setting up home hospice and would like to have a hospital grade bed at home for her. - Will reach out to regarding hospice resources and needs prior to discharge. Hypertension: - On admission pt's BP 140-170s/70-90s. - After 3u PRBCs BP elevated to 180s/100s; expect this is due to rapid correction of Hgb with reintroduction of blood volume to system. - Will continue to monitor BP. - Holding pt's home metoprolol tartrate 25mg BID given bradycardia. - Hydralazine 2.5mg IV q6h PRN SBP >180, DBP >110. Advanced dementia, complicated by sleep difficulties and hallucinations: - Reviewed last neurology note in April 2019. MOCA testing at that time revealed a score of 0 out of 30. - Unable to follow commands with any consistency and had minimal speech output. - Holding all meds in setting of severe GI bleed including donepezil and memantine. - Avoid Ambien, Ativan, Benadryl. Depression: Holding fluoxetine. Hypertension: Holding metoprolol tartrate Restless legs: Holding risperidone. FEN/GI: NPO in setting of GI bleed as above; awaiting speech evaluation. Protonix 40mg IV q12h. No IVF at this time due to large blood volume given and HTN. DVT ppx: SCDs. Chemical anticoagulation contraindicated at this time. CODE STATUS: DNR/DNI DISPO: Telemetry Admission and Anticipated Discharge Date Admission Date: October 18, 2019 Supervising Physician Co-Signing Physician Notes Attending attestation Pt seen and examined in concert with Dr. Melton. In agreement with the documented findings as noted in the resident documentation with any exceptions or additions as noted here. Poorly verbally responsive, answers no when asked re: pain. On examination, S1/S2 nl RRR no MCG. CTAB. Abd ND BS+ve TTP LLQ mildly Blood loss anemia, likely GIB - s/p 3u PRBC - continue protonix IV q12. Goals of care conversation as noted in residency chart, would coordinate for home hospice through case mgmt HTN - elevated now following transfusion. PRN hydralazine and monitor Dementia - avoid sedation, 1:1 if agitation or difficulty. Else see resident documentation as noted. Subjective Pt without hematuria, melena, bloody BMs overnight. This morning is minimally verbal however is somewhat responsive to voice. Does not speak in sentences. Sometimes answered yes or no questions. Denies dizziness, chest pain, trouble breathing, abdominal pain but unclear often if she is responding to my questions. Received a total of 3u PRBCs overnight. Review of Systems Review of Systems: Unobtainable due to mental health condition Physical Exam Constitutional: well developed and + thin Respiratory: poor movement of air, but no wheezes or crackles Cardiovascular: RRR, no murmur, no edema Gastrointestinal (Abdomen): Inspection/Auscultation: normal bowel sounds Percussion/Palpation: abdomen soft mild TTP LLQ, some wincing; no rebound or guarding Skin: no rashes, warm and dry Results & Data ([facility]) Vital Signs (Past 12 Hours) Vital Signs Temp Pulse Pulse Resp BP BP BP 10/19/19 15:18 36.8 C 57 L 20 178/94 H 10/19/19 11:28 36.8 C 63 18 188/101 H 182/102 H 10/19/19 09:50 47 L 10/19/19 09:40 36.7 C 50 L 17 160/73 H 10/19/19 09:13 36.6 C 52 L 16 163/71 H 10/19/19 08:13 37.0 C 58 L 18 146/63 H 10/19/19 07:13 36.6 C 49 L 17 153/67 H 10/19/19 06:43 36.7 C 48 L 16 135/59 L 10/19/19 06:28 36.3 C L 47 L 16 148/54 H 10/19/19 06:25 36.3 C L 48 L 14 135/63 10/19/19 06:10 36.6 C 50 L 15 158/68 H Pulse Ox 10/19/19 15:18 92 10/19/19 11:28 98 10/19/19 09:50 10/19/19 09:40 94 10/19/19 09:13 94 10/19/19 08:13 96 10/19/19 07:13 91 10/19/19 06:43 95 10/19/19 06:28 95 10/19/19 06:25 95 10/19/19 06:10 95 Laboratory Results Laboratory Results - last 24 hr 10/18/19 10/18/19 10/18/19 19:50 19:50 19:50 WBC 5.02 RBC 2.30 L Hgb 3.9 L* Hct 14.6 L* MCV 63.5 L MCH 17.0 L MCHC 26.7 L Plt Count 417 H Immature Gran % (Auto) 0.4 Neut % (Auto) 45.0 Lymph % (Auto) 39.8 [place] % (Auto) 8.6 Eos % (Auto) 5.8 Baso % (Auto) 0.4 Immature Gran # (Auto) 0.02 Neut # (Auto) 2.26 Lymph # (Auto) 2.00 [place] # (Auto) 0.43 Eos # (Auto) 0.29 Baso # (Auto) 0.02 Absolute Nucleated RBC 0.25 H Nucleated RBC % (auto) 4.9 Hypochromasia Present Microcytosis Present Ovalocytes 1+ Schistocytes 1+ Sodium 140 Potassium 3.8 Chloride 110 H Carbon Dioxide 27 Anion Gap 3.0 BUN 16 Creatinine 0.77 Est Cr Clr Drug Dosing Not Reportable Est GFR ( Amer) 91.3 Est GFR (Non-Af Amer) 78.8 BUN/Creatinine Ratio 21.0 H Glucose 89 Calcium 8.5 Total Bilirubin 0.6 AST 36 ALT 76 Alkaline Phosphatase 99 Total Protein 6.2 L Albumin 3.0 L Globulin 3.2 Albumin/Globulin Ratio 0.9 Lipase 97 Blood Type A Positive Blood Type Recheck Antibody Screen NEGATIVE Crossmatch See Detail 10/18/19 10/19/19 10/19/19 20:34 04:10 10:10 WBC RBC Hgb 7.2 L D 9.1 L Hct 23.7 L 28.9 L MCV MCH MCHC Plt Count Immature Gran % (Auto) Neut % (Auto) Lymph % (Auto) [place] % (Auto) Eos % (Auto) Baso % (Auto) Immature Gran # (Auto) Neut # (Auto) Lymph # (Auto) [place] # (Auto) Eos # (Auto) Baso # (Auto) Absolute Nucleated RBC Nucleated RBC % (auto) Hypochromasia Microcytosis Ovalocytes Schistocytes Sodium Potassium Chloride Carbon Dioxide Anion Gap BUN Creatinine Est Cr Clr Drug Dosing Est GFR ( Amer) Est GFR (Non-Af Amer) BUN/Creatinine Ratio Glucose Calcium Total Bilirubin AST ALT Alkaline Phosphatase Total Protein Albumin Globulin Albumin/Globulin Ratio Lipase Blood Type Blood Type Recheck A Positive Antibody Screen Crossmatch Resident Activity Tracking Resident Involvement: Resident Care Provided Care Provided: Adult Hospital Medicine (1) GI (gastrointestinal bleed) GI bleed type/associated pathology: melena Qualified Code(s): K92.1 - Melena
[2019-10-19] MEDS ORDERED: PANTOprazole 40 MG in DEXTROSE 5% 100 ML IV SCH (16:15)
[2019-10-19] MEDS: PANTOprazole 40 MG in SYRINGE 0 ML IV SCH (18:19)
[2019-10-19] MEDS ORDERED: HydrALAZINE HCL 20 MG/ML VIAL IV ONE (20:00)
[2019-10-19] MEDS ORDERED: METOPROLOL TARTRATE 25 MG TAB PO SCH (21:00)
[2019-10-20 05:58] LABS: Hematocrit (blood only) 30.1 % (37-47); Hemoglobin 9.4 g/dL (12.0-16.0); Mean Corpuscular Hemoglobin 23.2 pg (25-34); Mean Corpuscular Hgb Conc 31.2 g/dL (32-36); Mean Corpuscular Volume 74.3 fL (80-100); Mean Platelet Volume 10.3 fL (7.4-10.4); Nucleated RBC # (auto) 0.16 K/uL (0-0); Nucleated RBC % (auto) 2.4 %; Platelet Count 329 K/uL (130-400); RDW Coefficient of Variation 22.3 % (11.5-14.5); RDW Standard Deviation 60.8 fL (36.4-46.3); Red Blood Count 4.05 M/uL (4.2-5.4); White Blood Count 6.63 K/uL (4.8-10.8)
--- NOTE | 2019-10-20 09:23 | Gastrointestinal Consultation ---
Date of Consultation October 20, 2019 Assessment & Plan (1) Anemia: Microcytic anemia----Probable Fe deficiency anemia. Can be from chronic GI blood loss. Recommend Fe supplement such as Ferrous sulfate 325 mg daily. CBC can be followed as outpt if desired by family. GI blood loss---Stool is light brown so no acute bleeding. Most likely etiology is PUD from ASA and/or Aleve. Per my discussion with Dr Yeh, the family desires conservative measures and wishing to do outpt hospice care for dementia even before this issue came up. I would favor conservative care with avoidance of endoscopy given the circumstances. Recommend avoiding ASA and NSAIDS. Would use Protonix 40 mg po bid for one month then once daily chronically. Will sign off. Please call for further questions. History of Present Illness Reason for Consultation: GI bleed, anemia Requesting Physician: DR Evan Yeh Attending Physician: Evan Yeh MD History of Present Illness CC unobtainable from patient. She is densely demented. History from chart, nurse and DR Yeh. HPI Reviewed old [facility] records and note colonsocopy by Dr Briones 2014 left sided diverticulosis, internal and external hemorrhoids. Noted Hgb 13.6 07/2017 and on admit Hgb 4.1 with MCV 64 c/w Fe deficiency anemia. Unclear if any black or bloody stools. Possible darker stools recently. Apparent abd pain with constipation improved with Dulcolax. She is on ASA 81 mg isa and 2 Aleves nightly for general aches and pain. She has been transfused with stable Hgb. Initial transaminase elevation resolved. Allergies Allergy/AdvReac Type Severity Reaction Status Date / Time red dye Allergy Intermediate Hives Verified 10/18/19 20:17 Sulfa (Sulfonamide Allergy Unknown RASH/ITCHIN Verified 10/18/19 20:17 Antibiotics) G BLACK DYE Allergy Intermediate Hives Uncoded 10/18/19 20:17 Unclassified Drugs Allergy Unknown Black Uncoded 10/18/19 20:17 Rubber Mix Home Medications Home Medications Medication Instructions Recorded Confirmed Type aspirin 81 mg tablet,delayed 81 mg PO DAILY 05/10/19 10/18/19 History release cholecalciferol (vitamin D3) 125 5,000 units PO DAILY 05/10/19 10/18/19 History mcg (5,000 unit) capsule fluoxetine 20 mg capsule 20 mg PO DAILY 05/10/19 10/18/19 History metoprolol tartrate 25 mg tablet 25 mg PO BID 05/10/19 10/18/19 History multivitamin 1 tab PO DAILY 05/10/19 10/18/19 History donepezil 10 mg tablet 10 mg PO DAILY #30 tab 05/14/19 10/18/19 Rx memantine 5 mg tablet 10 mg PO BID 30 Days #120 tab 08/26/19 10/18/19 Rx [id number] 1 cap PO DAILY 10/18/19 10/18/19 History [krill oil] risperidone 0.5 mg PO HS 10/18/19 10/18/19 History Patient History Medical History Dementia Hyperlipidemia Hypertension Surgical History History of hysterectomy Family History Father Cancer Mother Heart disease Family/Other Hx of CABG Cancer Diabetes Social History Preferred Language: [place]an Communication Ability: Impaired Church Administrator Required: No Beliefs That Will Affect Care: None marital status: Current Living Situation: Spouse current occupational status: retired Other Information That Helps Us Care for You: No Feels Safe at Home: Yes Safety Concerns: Feels Safe At This Time Smoking Status: Former smoker Tobacco Type: cigarettes ; Do You Dip or Chew Tobacco: No ; Second Hand Exposure: No ; Tobacco Cessation Education Requested by Patient: No Hx Alcohol Use: No Hx Substance Use: No Review of Systems Review of Systems: Unobtainable due to cognitive status Physical Exam Constitutional: WD/WN, vitals as above Eyes: PERRL, conjunctivae normal, anicteric sclerae ENMT: external ear and nose normal. Neck: trachea midline, no thyromegaly Respiratory: normal respiratory effort, lungs clear to auscultation Cardiovascular: RRR, no murmur, no edema Gastrointestinal (Abdomen): normal bowel sounds, soft, nontender, no hepatosplenomegaly exam with nurse present, rectal no obvious mass, small amount of stool on glove light brown. Skin: normal turgor Psychiatric: alert Results & Data ([facility]) Vital Signs (Past 12 Hours) Vital Signs Temp Pulse Pulse Resp BP BP Pulse Ox 10/20/19 07:50 36.8 C 60 18 165/76 H 94 10/20/19 04:56 163/80 H 10/20/19 03:52 36.8 C 61 18 179/84 H 97 10/19/19 23:02 57 L 10/19/19 22:58 36.5 C 55 L 18 173/73 H 94 (1) Anemia Anemia type: iron deficiency Iron deficiency anemia type: unspecified iron deficiency Qualified Code(s): D50.9 - Iron deficiency anemia, unspecified
[2019-10-20] MEDS: PANTOprazole 40 MG in SYRINGE 0 ML IV SCH ×2 (09:50→19:39)
[2019-10-20] MEDS: METOPROLOL TARTRATE 25 MG TAB PO SCH ×2 (13:03→19:38)
--- NOTE | 2019-10-20 13:12 | Family Medicine Progress Note ---
Date of Service October 20, 2019 Assessment & Plan (1) GI (gastrointestinal bleed): 69 yo F h/o HTN, dementia on donepezil and anemia w/ anemia to 3.9 likely 2/2 UGI bleed. GI bleed, severe anemia - s/p 3u PRBC - stable @ >9. GI consultation appreciated. Per family and medical team wishes, no endoscopy at present. Monitor CBC in AM with dispo to hospice for dementia as below. PO PPI BID x 1 month Hypertension - BP stably increased - restart metoprolol 25mg BID, hydralazine PRN Advanced dementia, complicated by sleep difficulties and hallucinations - patient pending evaluation at home for hospice. Avoid Ambien, Ativan, Benadryl. Would eschew restarting donepezil on discharge. Depression - consider restart fluoxetine in outpatient RLS - restart risperidone on discharge FEN/GI: Restart regular diet. Protonix 40mg IV q12h. No IVF at this time due to large blood volume given and HTN. DVT ppx: SCDs. Chemical anticoagulation contraindicated at this time. CODE STATUS: DNR/DNI Present on Admission?: Yes (2) Anemia: Present on Admission?: Yes (3) Dementia: Present on Admission?: Yes (4) Weakness: Present on Admission?: Yes Admission and Anticipated Discharge Date Admission Date: October 18, 2019 Subjective Resting comfortably in bed. No acute complaint at present. When asked, LLQ abdominal pain persists. Discussed with spouse - does not want aggressive medical intervention/procedures including any endoscopy. They are on board with hospice care in the outpatient and case management is aware of the patient's family desires. Review of Systems Constitutional: no fever, no chills and no fatigue Respiratory: no cough, no dyspnea and no wheezing Cardiovascular: no chest pain, no palpitations and no syncope Gastrointestinal: + abdominal pain; no nausea, no vomiting, no constipation and no diarrhea/loose stools Physical Exam Constitutional: WD/WN, vitals as above no acute distress Respiratory: normal respiratory effort, lungs clear to auscultation Cardiovascular: RRR, no murmur, no edema Heart Sounds: normal S1 and normal S2 Gastrointestinal (Abdomen): normal bowel sounds, soft, nontender, no hepatosplenomegaly Skin: no rashes, warm and dry Psychiatric: Orientation: alert; + not oriented x 3 Speech: + abnormal rate/rhythm/volume of speech Results & Data ([facility]) Vital Signs (Past 12 Hours) Vital Signs Temp Pulse Pulse Resp BP BP Pulse Ox 10/20/19 11:48 36.8 C 66 18 166/87 H 93 10/20/19 11:09 60 10/20/19 07:50 36.8 C 60 18 165/76 H 94 10/20/19 04:56 163/80 H 10/20/19 03:52 36.8 C 61 18 179/84 H 97 (1) GI (gastrointestinal bleed) GI bleed type/associated pathology: melena Qualified Code(s): K92.1 - Melena (2) Anemia Anemia type: iron deficiency Iron deficiency anemia type: unspecified iron deficiency Qualified Code(s): D50.9 - Iron deficiency anemia, unspecified (3) Dementia Dementia behavioral disturbance: without behavioral disturbance Dementia type: unspecified type Qualified Code(s): F03.90 - Unspecified dementia without behavioral disturbance
[2019-10-21 05:48] LABS: Hematocrit (blood only) 32.7 % (37-47); Hemoglobin 10.1 g/dL (12.0-16.0); Mean Corpuscular Hemoglobin 23.2 pg (25-34); Mean Corpuscular Hgb Conc 30.9 g/dL (32-36); Mean Platelet Volume 10.5 fL (7.4-10.4); Nucleated RBC # (auto) 0.08 K/uL (0-0); Nucleated RBC % (auto) 1.2 %; Platelet Count 324 K/uL (130-400); RDW Coefficient of Variation 23.5 % (11.5-14.5); RDW Standard Deviation 63.4 fL (36.4-46.3); Red Blood Count 4.36 M/uL (4.2-5.4); White Blood Count 7.08 K/uL (4.8-10.8)
[2019-10-21] MEDS: METOPROLOL TARTRATE 25 MG TAB PO SCH (08:05)
[2019-10-21] MEDS: PANTOprazole 40 MG in SYRINGE 0 ML IV SCH (08:05)
--- NOTE | 2019-10-21 15:41 | Discharge Summary ---
Date of Service October 21, 2019 Admission HPI Per Admitting Provider This is a 69-year-old female with past medical history of hypertension, hyperlipidemia, depression and advanced dementia since 2009--who was instructed to go to the ER after her primary care doctor reviewed her labs. She presented earlier today with her . Per report, there were complaints of dark stools. Labs were ordered by PCP and were significant for hemoglobin of 4.1, hematocrit 15.8, MCV 64.2. No leukocytosis. Chemistry panel revealed no significant abnormalities and BUN 16, creatinine 0.77, GFR 91. TSH within normal limits. In discussion with her Robert over the phone: He admitted he could not provide much additional history but confirms he is her POA and that she would not want drastic measures taken should her heart stop or breathing stop. In discussion with her daily caregiver Mehreen Mohr over the phone, she states the patient is administered 2 Aleve every night for a very long time. This is for her aches and pains. Caregiver noticed dark stools 2 days ago, but says leia santos did not have a bowel movement today. States patient complains of abdominal pain when she gets constipated, and so she administered Dulcolax. P.o. intake has been good. In discussion with her sister at the bedside, she confirmed the above. Principal Diagnosis Acute on chronic blood loss anemia, GI bleed Discharge Exam Constitutional well nourished and + frail appearing; no acute distress and + uncooperative Eyes PERRL, conjunctivae normal, anicteric sclerae ENMT external ear and nose normal, oropharynx normal Neck trachea midline, no thyromegaly Respiratory normal respiratory effort, lungs clear to auscultation Cardiovascular RRR, no murmur, no edema Gastrointestinal (Abdomen) normal bowel sounds, soft, nontender, no hepatosplenomegaly Musculoskeletal no cyanosis or clubbing, extremities motor strength 5/5 Skin no rashes, warm and dry Neurologic patellar DTR's 2+ bilat, sensation intact and PERRL, EOMI, accommodation nl, no face palsy, no dysarthria Psychiatric Orientation: + not alert and + not oriented x 3 Lymphatic no cervical or axillary lymphadenopathy Discharge Data Allergies Allergy/AdvReac Type Severity Reaction Status Date / Time red dye Allergy Intermediate Hives Verified 10/18/19 20:17 Sulfa (Sulfonamide Allergy Unknown RASH/ITCHIN Verified 10/18/19 20:17 Antibiotics) G BLACK DYE Allergy Intermediate Hives Uncoded 10/18/19 20:17 Unclassified Drugs Allergy Unknown Black Uncoded 10/18/19 20:17 Rubber Mix Consultations 10/18/19 22:27 Consult Case Management - Discharge Planning Routine Consult Gastroenterology Routine 10/19/19 16:01 Consult [facility] artist's representative Routine Hospital Course (1) Acute on chronic blood loss anemia: presented with Hb of 4.1, microcytic, suspect gradual blood loss but more acute drop recently transfused, Hb stable at 10 d/c to home on hospice (2) GI (gastrointestinal bleed): GIB possibly due to chronic NSAID use suspect PUD but patient's family wanted conservative measures, no EGD to confirm treat like she has PUD with Protonix BID x 1 month then once daily no further signs of melena (3) Anemia: stable after transfusion (4) Dementia: advanced, with sleep disturbances, will d/c to home on hospice (5) Weakness: home on hospice Total Time Total Time Spent Total Time Spent (In Minutes): 25 minutes Total Time Includes: Examination of the Patient, Discharge Planning and Medication Reconciliation Discharge Plan Discharge Items Patient Disposition: Hospice - Home Reason For Visit: GIB,ANEMIA Discharge Diagnosis: GI bleed Dementia Condition on Discharge: Fair Goals: comfort care, hospice at home Activity: Resume your previous activity Non-emergency contact: Primary Care Provider Call non-emergency contact if: you have any medication questions and your symptoms worsen Follow-up/Referrals: Ezequiel Steve MD [Primary Care Provider] - 10/28/19 11:00 am Diet: Regular Addtl Attending Provider Instructions: Medications: - PROTONIX: 40mg twice a day for a month then once a day thereafter GI bleed: hemoglobin is up to 10 after transfusion, has been stable, no further signs of bleeding will hold aspirin indefinitely use Protonix to treat suspected ulcer (could not be confirmed due to no scope) Advanced Dementia: return home on hospice please follow further instructions from hospice providers Pending Studies at Discharge: No Stand-Alone Forms: [facility] Medications and DC Order Prescriptions: New pantoprazole [Protonix] 40 mg tablet,delayed release (DR/EC) 40 mg PO BID 30 Days Qty: 60 RF: 3 Continued memantine 5 mg tablet 10 mg PO BID 30 Days Qty: 120 RF: 3 cholecalciferol (vitamin D3) 5,000 unit capsule 5,000 units PO DAILY RF: 0 fluoxetine 20 mg capsule 20 mg PO DAILY RF: 0 metoprolol tartrate 25 mg tablet 25 mg PO BID RF: 0 multivitamin [Multiple Vitamins] tablet 1 tab PO DAILY RF: 0 donepezil 10 mg tablet 10 mg PO DAILY Qty: 30 RF: 6 risperidone 0.5 mg tablet 0.5 mg PO HS RF: 0 [id number]-[id number]-rzhoveo-ast [krill oil] [id number] mg Capsule 1 cap PO DAILY RF: 0 Discontinued aspirin [Adult Low Dose Aspirin] 81 mg tablet,delayed release (DR/EC) 81 mg PO DAILY RF: 0 Discharge Orders: Discharge Order (Routine); Ordered 10/21/19 Ordered By: Raymon Galeas Admission Data Admit Date/Time: 10/18/19 21:36 Attending Provider: Raymon Galeas Admit Provider: Isabel Jaramillo Primary Care Provider: Ezequiel Steve Other Providers: Víctor Cheung ; [place] Other Interventions: Discharge Summary Assessment (RN) Last Done: 10/21/19 12:47 DC Date/Time DO NOT enter until pt leaves facility: 10/21/19 13:45 Coding Level of Care Code D/C Day Management <30 mins Diagnoses Acute on chronic blood loss anemia D62 GI (gastrointestinal bleed) K92.1 GI bleed type/associated pathology: melena Anemia D50.9 Anemia type: iron deficiency Iron deficiency anemia type: unspecified iron deficiency Dementia F03.90 Dementia behavioral disturbance: without behavioral disturbance Dementia type: unspecified type Weakness R53.1
--- NOTE | 2019-10-25 02:41 | Billing Data ---
Date of Service October 25, 2019 Coding Level of Care Code 67615 Initial Inpt Care Lvl 3
== END 2019-10-21 13:45 | disposition hospice, home (50) | DRG 813 ==
LOC: ED 19:30 → SUATTDRO 21:36 → 2E 21:36
DX: T39.315A Adverse effect of propionic acid derivatives, initial encounter; D68.32 Hemorrhagic disorder due to extrinsic circulating anticoagulants; R53.1 Weakness; Z79.82 Long term (current) use of aspirin; K92.1 Melena; I10 Essential (primary) hypertension; Z79.899 Other long term (current) drug therapy; D50.9 Iron deficiency anemia, unspecified; Z91.81 History of falling; Z87.891 Personal history of nicotine dependence; K59.00 Constipation, unspecified; E78.5 Hyperlipidemia, unspecified; F03.90 Unspecified dementia, unspecified severity, without behavioral disturbance, psychotic disturbance, mood disturbance, and anxiety; D62 Acute posthemorrhagic anemia; F32.9 Major depressive disorder, single episode, unspecified; R29.6 Repeated falls